=== PATIENT | female | born 1995 | race Caucasian/White ===

== ENCOUNTER 2017-02-20 10:01 | Emergency (ER) | payer BC ==
[2017-02-20 10:15] VITALS: BP 118/85; PULSE 78; RESP 16; TEMP 98.6; O2SAT 98
--- NOTE | 2017-02-20 11:06 | EDPHY ---
H & P Time Seen by Provider: 02/20/17 10:02 HPI/ROS: CHIEF COMPLAINT: Sore throat since this morning HISTORY OF PRESENT ILLNESS: 21-year-old female, immunocompetent, woke with sore throat this morning. No URI symptoms. No cough. No rash. No nuchal rigidity. No abdominal pain. No nausea no vomiting. REVIEW OF SYSTEMS: A ten point review of systems was performed and is negative with the exception of the items mentioned in the HPI PAST MEDICAL & SURGICAL HISTORY: No pertinent medical or surgical history SOCIAL HISTORY: Student PHYSICAL EXAM (Prior to examination, patient consented to physical exam, hands were washed and my usual and customary physical exam procedures followed) 1) GENERAL: Well-developed, well-nourished, alert and oriented. Appears to be in no acute distress. 2) HEAD: Normocephalic, atraumatic 3) HEENT: Pupils equal, round, reactive to light bilaterally. Sclera anicteric. Oropharynx: Bilateral tonsils are symmetrically enlarged with white exudate. Uvula midline. No trismus no drooling. No hot potato voice. Ears bilaterally with normal tympanic membranes. 4) NECK: Full range of motion, no meningeal signs. Positive adenopathy. 5) LUNGS: Clear auscultation bilaterally, no wheezes, no rhonchi, no retractions. 6) HEART: Regular rate and rhythm, no murmur, no heave, no gallop. 7) ABDOMEN: No guarding, no rebound, no focal tenderness, negative McBurney's, negative Padilla's, negative Rovsing's, negative peritoneal sign, 8) MUSCULOSKELETAL: No peripheral edema or discoloration. 9) BACK: No CVA tenderness. 10) SKIN: No rash, no petechiae. 11) Psychiatric: Patient is oriented X 3, there is no agitation. DIFFERENTIAL DIAGNOSIS: in no particular order including but not limited to strep pharyngitis, viral pharyngitis, mononucleosis, peritonsillar abscess. Smoking Status: Never smoked Constitutional: Initial Vital Signs Temperature (C) 37 C 02/20/17 10:12 Heart Rate 78 02/20/17 10:12 Respiratory Rate 16 02/20/17 10:12 Blood Pressure 118/85 H 02/20/17 10:12 O2 Sat (%) 98 02/20/17 10:12 O2 Delivery Mode Room Air Allergies/Adverse Reactions: No Known Allergies Allergy (Verified 02/20/17 10:11) Home Medications: Medication Instructions Recorded Tri-Previfem Tablet 01/31/16 Penicillin V Potassium [Pen Vk] 500 mg PO Q6 10 Days tab 02/20/17 methylPREDNISolone [Medrol Dose 4 mg PO DAILY #1 ea 02/20/17 Zelalem] MDM/Departure - MDM ED Course/Re-evaluation: High clinical suspicion for strep pharyngitis. Patient requested rapid strep testing. I discussed the negative strep testing discussed the sensitivity of this. But I recommended empiric treatment nonetheless which she is agreeable with. No history of adverse reaction to steroids. She was given Medrol Dosepak , Pen-VK. Doubt peritonsillar abscess. Care of patient under supervision of secondary supervising physician Dr Perkins . - Depart Disposition: Home, Routine, Self-Care Clinical Impression: Acute streptococcal pharyngitis Condition: Good Instructions: Strep Throat (ED) Additional Instructions: Return to the ER immediately if you cannot swallow, have drooling, fevers, neck stiffness, cannot open your jaw, or any other symptoms that concern you. Prescriptions: methylPREDNISolone [Medrol Dose Zelalem] 4 mg PO DAILY #1 ea Penicillin V Potassium [Pen Vk] 500 mg PO Q6 10 Days tab Referrals: [facility]IMBER[facility] Velazquez,. [Clinic] - 2-3 days, call for appt.
== END 2017-02-20 11:00 | disposition home or self-care (01) ==
DX: J02.0 Streptococcal pharyngitis (principal)